=== PATIENT | female | born 1945 | race Caucasian/White ===

== ENCOUNTER 2017-01-20 11:56 | Inpatient (IN) | payer MEDICARE, OTHER ==
[~2017-01-20] VITALS: Ht 162.6 cm; Wt 70.3 kg
[2017-01-20] MEDS ORDERED: CLON0.1T PO (16:51)
[2017-01-20] MEDS ORDERED: LISI-603 PO (16:51)
[2017-01-20] MEDS ORDERED: SERT50TA PO (16:51)
[2017-01-20] MEDS ORDERED: MULT-213 PO (16:51)
[2017-01-20] MEDS ORDERED: FLUT12AE5 INH (16:51)
[2017-01-20] MEDS ORDERED: BISA10SU8 RC (16:51)
[2017-01-20] MEDS ORDERED: DOCU-25 PO (16:51)
[2017-01-20] MEDS ORDERED: NIFE30TA89 PO (16:51)
[2017-01-20] MEDS ORDERED: MAGN400O6 PO (16:51)
[2017-01-20] MEDS ORDERED: ACET-868 PO (16:51)
[2017-01-20] MEDS ORDERED: NICO1PAT28 TD (16:51)
[2017-01-20] MEDS ORDERED: TEMA7.5C PO (16:51)
[2017-01-20] MEDS ORDERED: PRED20TA PO (16:51)
[2017-01-20] MEDS ORDERED: LORA1TAB82 PO (16:51)
[2017-01-20] MEDS ORDERED: OMEG1CAP55 PO (16:51)
[2017-01-20] MEDS ORDERED: ATOR10TA PO (16:51)
[2017-01-20] MEDS ORDERED: CLONIDINE HCL 0.1 MG TABLET PO ONE (17:00)
[2017-01-20] MEDS ORDERED: CLONIDINE HCL 0.1 MG TABLET ONE (17:12)
[2017-01-20] MEDS ORDERED: predniSONE 20 MG TABLET PO ONE (17:30)
[2017-01-20] MEDS ORDERED: ALBUTEROL FS 2.5 MG/3 ML VIAL.NEB NEB ONE (17:30)
[2017-01-20] MEDS ORDERED: IPRATROPIUM NEB FS 0.5 MG/2.5 ML AMPUL.NEB NEB ONE (17:30)
[2017-01-20] MEDS ORDERED: predniSONE 20 MG TABLET ONE (17:32)
[2017-01-20] MEDS ORDERED: IPRATROPIUM NEB FS 0.5 MG/2.5 ML AMPUL.NEB ONE (17:35)
[2017-01-20] MEDS ORDERED: ALBUTEROL FS 2.5 MG/3 ML VIAL.NEB ONE (17:35)
--- NOTE | 2017-01-20 19:44 | NUR ---
71 Y/O FEMALE IN BED 14 RESTING COMFORTABLY. NO ORDERS PENDING. WAITING FOR ROOM ASSIGNMENT.
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
[2017-01-20 22:52] VITALS: BP 154/99
--- NOTE | 2017-01-21 | NUR ---
MS RN NOTES BLOOD PRESSURE RE CHECK 159/84,PULSE 76.
[2017-01-21 00:21] VITALS: BP 159/84
[2017-01-21] MEDS ORDERED: MAGNESIUM HYDROXIDE 30 ML UDC PO PRN (01:00)
[2017-01-21] MEDS ORDERED: BISACODYL SUPP (10 MG) 10 MG/SUPP.RECT SUPP.RECT RC PRN (01:00)
[2017-01-21] MEDS: LORAZEPAM 1 MG TABLET PO SCH ×3 (05:47→17:36)
--- NOTE | 2017-01-21 06:18 | NUR ---
MS RN NOTES NON SOB,SLEPT WELL WITHOUT PHARMACOLOGICAL INTERVENTION,REFUSED ATIVAN DOSE PO THIS MORNING.A/O X4,IN NO ACUTE DISTRESS.WILL ENDORSE TO DAY NURSE FOR RASTA.
[2017-01-21 08:00] VITALS: BP 189/107
--- NOTE | 2017-01-21 08:01 | NUR ---
MS/RN OPENING NOTE PATIENT RECEIVED IN BED IN STABLE CONDITION. A/O X 4. NO SIGNS OF ACUTE DISTRESS. NO COMPLAIN OF PAIN OR DISCOMFORT. ALL NEEDS ATTENDED TO. CALL LIGHT WITHIN REACH. WILL CONTINUE TO MONITOR TO ENSURE SAFETY.
[2017-01-21] MEDS: NICOTINE PATCH (21MG) 21 MG PATCH.TD24 TD SCH (08:33)
[2017-01-21] MEDS: NIFEdipine XL (30MG) 30 MG TAB PO SCH (08:34)
[2017-01-21] MEDS: DOCUSATE SODIUM 100 MG CAPSULE PO SCH ×2 (08:34→17:36)
[2017-01-21] MEDS: LISINOPRIL (20MG) 20 MG TABLET PO SCH (08:34)
[2017-01-21] MEDS: predniSONE 20 MG TABLET PO SCH (08:34)
[2017-01-21] MEDS: SERTRALINE HCL 50 MG TABLET PO SCH (08:34)
[2017-01-21 08:53] LABS: BASOPHILS % (AUTO) 0.1 % (0.0-2.0); EOSINOPHILS % (AUTO) 0.1 % (0.0-6.0); HEMATOCRIT 43 % (33-45); LYMPHOCYTES % (AUTO) 12.4 % (20.0-44.0); MEAN CORPUSCULAR HEMOGLOBIN 28 PG (26.0-33.0); MEAN CORPUSCULAR HGB CONC 33 g/dl (31.0-36.0); MEAN CORPUSCULAR VOLUME 87 fL (82-100); MONOCYTES # (AUTO) 0.7 /CMM (0.1-1.30); MONOCYTES % (AUTO) 4.4 % (2.0-12.0); NEUTROPHILS # (AUTO) 13.7 /CMM (1.8-8.9); PLATELET COUNT (AUTO) 342 /CMM (150-450); RED BLOOD CELL COUNT(AUTO) 4.93 MIL/uL (4.0-5.2); WHITE BLOOD COUNT (AUTO) 16.5 K/uL (4.3-11.0)
[2017-01-21] MEDS: FLUTICASONE 110MCG 1 EA INHALER IH SCH ×2 (09:07→17:38)
[2017-01-21] MEDS: MULTIVITAMINS,THERAGRAN 1 UDTAB TABLET PO SCH (09:07)
[2017-01-21 09:17] LABS: BILIRUBIN,TOTAL 0.3 mg/dL (0.2-1.0); CALCIUM, SERUM 9.7 mg/dL (8.5-10.1); CREATININE 0.6 mg/dL (0.6-1.3); MAGNESIUM 2.1 mg/dL (1.8-2.4); PHOSPHORUS 3.3 mg/dL (2.5-4.9); POTASSIUM 4.1 mmol/L (3.5-5.1); TOTAL PROTEIN, SERUM 6.7 g/dL (6.4-8.2)
--- NOTE | 2017-01-21 10:56 | NUR ---
MS/RN SPOKE WITH DR SHARMA SPOKE WITH DR SHARMA AND MADE AWARE PATIENT WBC 16 AND PT. C/O NASAL CONGESTION AND THROAT IRRITATION WITH ORDERS FOR CXR TODAY
[2017-01-21 16:00] VITALS: BP 164/91
[2017-01-21] MEDS: CLONIDINE HCL 0.1 MG TABLET PO PRN ×2 (17:37→22:34)
--- NOTE | 2017-01-21 18:34 | NUR ---
MS/RN CLOSING NOTE PATIENT IN BED IN STABLE CONDITION. A/O X 4. NO SIGNS OF ACUTE DISTRESS. NO COMPLAIN OF PAIN OR DISCOMFORT. ALL NEEDS ATTENDED TO. CALL LIGHT WITHIN REACH. WILL ENDORSE TO NEXT SHIFT FOR CONTINUITY OF CARE.
[2017-01-21 20:00] VITALS: BP 187/87
--- NOTE | 2017-01-21 20:00 | NUR ---
MS MELLO INITIAL NOTES RECEIVED REPORT FROM AM NURSE AND CHECKED THE PATIENT, SEEN IN BED SITTING WHILE WATCHING TV. SHE'S ALERT ORIENTED, DENIES ANY SOB OR ANY DISCOMFORT. KEPT HER WARM AND COMFORTABLE AT ALL TIMES. PLACE CALL LIGHT AT REACH. WILL CONTINUE TO MONITOR.
[2017-01-21] MEDS: TEMAZEPAM 7.5 MG CAPSULE PO PRN (21:32)
[2017-01-21] MEDS: ATORVASTATIN 10 MG TABLET PO SCH (21:32)
--- NOTE | 2017-01-21 22:00 | NUR ---
MS FUNMILAYO NOTES ROUTINE MEDS GIVEN AND SLEEP MED GIVEN . SAFETY PRECAUTION APPLIED AND OBSERVED. PLACE CALL LIGHT AT REACH.
--- NOTE | 2017-01-22 | NUR ---
MS SOFT METALS ENGRAVER HAND NOTES PT SLEEPING COMFORTABLY IN BED WITHOUT ANY DISCOMFORT NOTED. RESPIRATION EVEN AND NON-LABORED. KEPT HER WARM AND COMFORTABLE AT ALL TIMES. WILL CONTINUE TO MONITOR. PLACE CALL LIGHT AT REACH.
[2017-01-22] MEDS: LORAZEPAM 1 MG TABLET PO SCH ×4 (05:30→17:23)
[2017-01-22 05:46] VITALS: BP 152/90
[2017-01-22] MEDS: CLONIDINE HCL 0.1 MG TABLET PO PRN ×2 (05:49→21:26)
--- NOTE | 2017-01-22 05:50 | NUR ---
quality internship/notes pt woke up and routine ativan give as ordered, checked her blood pressure too and came out 170/100, clonidine given as ordered. pt stated "that much better, denies any discomfort and dizziness. no chest pain too. continue monitoring.
--- NOTE | 2017-01-22 07:00 | NUR ---
COMPLAINT COORDINATOR/CLOSING NOTES PT SLEEPING COMFORTABLY IN BED AFTER ATIVAN GIVEN . NO SIGNS OF ANY ACUTE DISTRESS NOTED. ALL DUE MEDS GIVEN AND STABLE SHARMIN THE NIGHT. KEPT HER WARM AND COMFORTABLE AT ALL TIMES. ENDORSE TO AM NURSE ARRIOLA FOR CONTINUITY OF CARE.PLACE CALL LIGHT AT REACH.
--- NOTE | 2017-01-22 07:36 | NUR ---
MS RN OPENING NOTES. PT RECEIVED A&0X3. PT SLEEPING, EASILY AWOKEN, PT IN LOW SEMI FOWLERS WITH BED IN LOWEST LOCKED POSITION WITH HANDRAILSX3 AND CALL MCKINNEY WITHIN REACH. PT TOLERATING ROOM AIR, LUNGS AUSCULTATED DIMINISHED, [id number]% WITH NO SOB . PT REPORTING NO PAIN AND IS WITH NO OBVIOUS S/S OF DISTRESS OR DISCOMFORT. PT IS WITHOUT IVC, ENDORSED MD AWARE. PT BRIEFED ON TODAY'S POC AND IS WITHOUT CONCERN OR COMPLAINT AT THIS TIME.
[2017-01-22 08:00] VITALS: BP 160/95
[2017-01-22] MEDS: FLUTICASONE 110MCG 1 EA INHALER IH SCH ×2 (09:07→17:24)
[2017-01-22] MEDS: LISINOPRIL (20MG) 20 MG TABLET PO SCH (09:08)
[2017-01-22] MEDS: MULTIVITAMINS,THERAGRAN 1 UDTAB TABLET PO SCH (09:08)
[2017-01-22] MEDS: predniSONE 20 MG TABLET PO SCH (09:08)
[2017-01-22] MEDS: DOCUSATE SODIUM 100 MG CAPSULE PO SCH ×2 (09:08→17:23)
[2017-01-22] MEDS: SERTRALINE HCL 50 MG TABLET PO SCH (09:08)
[2017-01-22] MEDS: NIFEdipine XL (30MG) 30 MG TAB PO SCH (09:08)
[2017-01-22] MEDS: NICOTINE PATCH (21MG) 21 MG PATCH.TD24 TD SCH (09:08)
--- NOTE | 2017-01-22 13:00 | NUR ---
MS RN NOTES. PT RESTING, WATCHING T.V, NO CONCERNS OR COMPLAINTS. IN GOOD SPIRITS AND COOPERATIVE.
[2017-01-22] MEDS ORDERED: IPRATROPIUM NEB FS 0.5 MG/2.5 ML AMPUL.NEB NEB PRN (14:00)
[2017-01-22] MEDS ORDERED: AZITHROMYCIN 100 MG/5 ML BOTTLE PO SCH (14:00)
[2017-01-22] MEDS ORDERED: GUAIFENESIN/CODEINE 10 ML UDC PO PRN (14:00)
[2017-01-22] MEDS ORDERED: ALBUTEROL FS 2.5 MG/0.5 ML VIAL.NEB NEB PRN (14:00)
[2017-01-22] MEDS: AZITHROMYCIN 250 MG TABLET PO SCH (14:18)
[2017-01-22] MEDS ORDERED: GUAIFENESIN 300 MG/15 ML UDC PO PRN (15:30)
[2017-01-22 16:00] VITALS: BP 159/90
--- NOTE | 2017-01-22 19:10 | NUR ---
MS RN CLOSING NOTES. PT A&0X3, RESTING IN BED. PT TOLERATING ROOM AIR, NC AT BEDSIDE FOR PERIODS OF SOB BUT HAS REMAINED UNUSED. PT REPORTING NO PAIN. PT SKIN REMAINS INTACT AND IS INDEPENDENT WITH REPOSITIONING. PT REMAINS WITHOUT IVC. ALL DAY NURSE DUTIES ATTENDED TO. PT WITHOUT CONCERN OR COMPLAINT AT THIS TIME. WILL ENDORSE TO NIGHT NURSE.
--- NOTE | 2017-01-22 19:45 | NUR ---
MS FUNMILAYO INITIAL NOTES. GOT REPORT FROM AM NURSE, AND SEEN PT INSIDE 315 TALKING TO ONE OF HER FRIEND FROM [facility]. DENIES ANY PAIN OR ANY DISCOMFORT. SHE SEEMS SO HAPPY WHILE TALKING TO HER FRIEND. SHE STATED SHE WILL BE BACK TO HER ROOM AFTER TALKING TO HIM. KEPT HER COMFORTABLE AND SAFE AT ALL TIMES. WILL CONTINUE TO MONITOR.
[2017-01-22 20:00] VITALS: BP 178/109
[2017-01-22] MEDS: ATORVASTATIN 10 MG TABLET PO SCH (21:26)
[2017-01-22] MEDS: TEMAZEPAM 7.5 MG CAPSULE PO PRN (21:28)
[2017-01-23] VITALS: BP 174/102
[2017-01-23] MEDS ORDERED: hydrALAZINE HCL 25 MG TABLET ONE (00:22)
--- NOTE | 2017-01-23 00:23 | NUR ---
steel hanger/notes re-checked b vital signs of the patient after catapres given. BP 174/109, pulse 70, resp 18, temp 98.1 and o2 sat 92 % in room air. pt denies any pain ro discomfort. spoke to Dr Martino and got ordered Hydralazine 25mg po q 6hrs prn.
[2017-01-23] MEDS: hydrALAZINE HCL 25 MG TABLET PO PRN ×2 (00:29→19:53)
[2017-01-23] MEDS: LORAZEPAM 1 MG TABLET PO SCH ×5 (00:29→23:28)
--- NOTE | 2017-01-23 02:30 | NUR ---
ADMINISTRATIVE PROFESSIONAL/NOTES PT SLEEPING COMFORTABLY IN BED WITHOUT ANY ACUTE DISTRESS NOTED, BREATHING EVEN AND NON-LABORED, KEPT HER WARM AND COMFORTABLE AT ALL TIMES. PLACE CALL LIGHT AT REACH.
[2017-01-23] MEDS: ACETAMINOPHEN 325 MG TABLET PO PRN ×3 (03:12→21:43)
--- NOTE | 2017-01-23 03:15 | NUR ---
clean up person/notes pt woke up and complained of mild pain on her lower legs tylenol po given as ordered. crackmert and milton also served. will continue to monitor.
--- NOTE | 2017-01-23 07:01 | NUR ---
MS TEST DESK SUPERVISOR CLOSING NOTES PT REMAINS SLEEPING COMFORTABLY IN BED AFTER PAIN MEDS GIVEN . STABLE SHARMIN THE NIGHT . ALL DUE MEDS GIVEN AND ALL NEEDS MET. KEPT HER WARM AND COMFORTABLE AT ALL TIMES. BREATHING EVEN AND NON-LABORED. NOT IN ANY ACUTE DISTRESS NOTED. ENDORSE TO AM NURSE FOR CONTINUITY OF CARE. PLACE CALL LIGHT AT REACH.
--- NOTE | 2017-01-23 07:32 | NUR ---
RN OPENING NOTES RECEIVED PATIENT IN BED RESTING, RESPONSIVE, A/OX4. NO ACUTE DISTRESS, NO SOB NOTED. DENIES PAIN AT THE MOMENT. KEPT PATIENT SAFE AND COMFORTABLE. BED IN LOW POSITION, LOCKED, SIDERAILS UPX2. CALL LIGHT IN REACH. WILL CONTINUE TO MONITOR ACCORDINGLY.
[2017-01-23 08:00] VITALS: BP 174/99
[2017-01-23] MEDS: DOCUSATE SODIUM 100 MG CAPSULE PO SCH ×2 (09:19→17:52)
[2017-01-23] MEDS: LISINOPRIL (20MG) 20 MG TABLET PO SCH (09:20)
[2017-01-23] MEDS: SERTRALINE HCL 50 MG TABLET PO SCH (09:21)
[2017-01-23] MEDS: NIFEdipine XL (30MG) 30 MG TAB PO SCH (09:21)
[2017-01-23] MEDS: NICOTINE PATCH (21MG) 21 MG PATCH.TD24 TD SCH (09:21)
[2017-01-23] MEDS: MULTIVITAMINS,THERAGRAN 1 UDTAB TABLET PO SCH (09:21)
[2017-01-23] MEDS: predniSONE 20 MG TABLET PO SCH (09:21)
[2017-01-23] MEDS: AZITHROMYCIN 250 MG TABLET PO SCH (09:26)
[2017-01-23] MEDS: FLUTICASONE 110MCG 1 EA INHALER IH SCH ×2 (09:36→17:53)
[2017-01-23 16:00] VITALS: BP 151/80
--- NOTE | 2017-01-23 19:05 | NUR ---
MS RN OPENING NOTES: RECEIVED PT IN BED AND RESTING COMFORTABLY AND WATCHING TV. PT IS LAYING UP WITH SEMI MOSQUEDA'S POSITION. NO COMPLAINTS OF PAIN. NO S/S OF DISTRESS NOTED AT THIS TIME. PT IS A/OX4. CALL LIGHT WITHIN PT'S REACH. BED KEPT IN LOW, LOCKED POSITION, AND SIDE RAILS X 2UP. WILL CONTINUE TO MONITOR PT.
--- NOTE | 2017-01-23 19:15 | NUR ---
RN CLOSING NOTES NO CHANGE IN PATIENT'S CONDITION, PATIENT IN BED RESTING. NO ACUTE DISTRESS, NO SOB. DENIES PAIN OR DISCOMFORT. ALL NEEDS ATTENDED AND PROVIDED. BED IN LOW POSITION, LOCKED, HOB ELEVATED, SIDERAILS UPX2, CALL LIGHT IN REACH. ENDORSED TO NIGHT RN FOR RASTA.
[2017-01-23 20:00] VITALS: BP 203/103
[2017-01-23 21:38] VITALS: BP 184/68
[2017-01-23] MEDS: ATORVASTATIN 10 MG TABLET PO SCH (21:43)
--- NOTE | 2017-01-23 21:43 | NUR ---
MS RN NOTES: PT COMPLAINING OF MILD LEG PAIN AND REQUESTING FOR TYLENOL. PT WAS ADMINISTERED TYLENOL 650 MG PO. WILL CONTINUE TO MONITOR PT.
--- NOTE | 2017-01-23 21:53 | NUR ---
MS RN NOTES: SPOKE TO RHEA BROWN REGARDING BP TRENDING DOWN 184/68 HR 85. DOES NOT WANT TO DISCHARGE HER EVEN AFTER INFORMING HER ABOUT MICROBIOLOGY SOIL SCIENTIST NOTES. WILL CONTINUE TO MONITOR PT.
[2017-01-23 22:37] VITALS: BP 174/88
[2017-01-23] MEDS: CLONIDINE HCL 0.1 MG TABLET PO PRN (22:39)
--- NOTE | 2017-01-23 22:41 | NUR ---
RN NOTES: BLOOD PRESSURE STILL ELEVATED: 174/88 HR 80. PT WAS ADMINISTERED CATAPRES 0.1MG PO. WILL CONTINUE TO MONITOR PT'S BP.
--- NOTE | 2017-01-23 23:30 | NUR ---
MS RN NOTES: BLOOD PRESSURE TRENDING DOWN AND IS NOW 156/108 HR 83. PT WAS ADMINISTERED ATIVAN 1MG PO (SCHEDULED MED). WILL CONTINUE TO MONITOR PT.
[2017-01-24] MEDS: hydrALAZINE HCL 25 MG TABLET PO PRN ×2 (05:10→12:24)
--- NOTE | 2017-01-24 05:13 | NUR ---
MS RN NOTES: BP WAS 173/107 HR 70. APRESOLINE 25MG PO WAS ADMINISTERED. WILL CONTINUE TO MONITOR PT.
[2017-01-24] MEDS: LORAZEPAM 1 MG TABLET PO SCH ×2 (05:52→11:05)
[2017-01-24 06:40] VITALS: BP 159/94
--- NOTE | 2017-01-24 07:00 | NUR ---
RN NOTES: PATIENT AOX4. PATIENT RESTING IN BED. NONLABORED BREATHING NOTED ON ROOM AIR. NO COUGHING NOTED. NO SIGNS OF DISTRESS NOTED. PATIENT DENIES PAIN. BED IN LOWEST LOCKED POSITION. CALL LIGHT WITHIN REACH. WILL CONTINUE TO MONITOR PATIENT
--- NOTE | 2017-01-24 07:05 | NUR ---
MS RN CLOSING NOTES: ALL NEEDS WERE ATTENDED AND ANTICIPATED FOR. PT IN BED AND RESTING COMFORTABLY. PT ASLEEP AT THIS TIME. PT IS LAYING UP WITH SEMI MOSQUEDA'S POSITION. NO COMPLAINTS OF PAIN. NO S/S OF DISTRESS NOTED AT THIS TIME. PT IS A/OX4. CALL LIGHT WITHIN PT'S REACH. BED KEPT IN LOW, LOCKED POSITION, AND SIDE RAILS X 2UP. ENDORSED TO AM NURSE FOR RASTA.
[2017-01-24 08:00] VITALS: BP 172/90
[2017-01-24] MEDS: SERTRALINE HCL 50 MG TABLET PO SCH (08:11)
[2017-01-24] MEDS: LISINOPRIL (20MG) 20 MG TABLET PO SCH (08:12)
[2017-01-24] MEDS: AZITHROMYCIN 250 MG TABLET PO SCH (08:12)
[2017-01-24] MEDS: MULTIVITAMINS,THERAGRAN 1 UDTAB TABLET PO SCH (08:13)
[2017-01-24] MEDS: predniSONE 20 MG TABLET PO SCH (08:13)
[2017-01-24] MEDS: DOCUSATE SODIUM 100 MG CAPSULE PO SCH (08:14)
[2017-01-24] MEDS: NIFEdipine XL (30MG) 30 MG TAB PO SCH (08:14)
[2017-01-24] MEDS: NICOTINE PATCH (21MG) 21 MG PATCH.TD24 TD SCH (08:15)
[2017-01-24] MEDS: FLUTICASONE 110MCG 1 EA INHALER IH SCH (08:21)
[2017-01-24 09:19] VITALS: BP 166/86
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
[2017-01-24 13:05] VITALS: BP 168/78
--- NOTE | 2017-01-24 13:06 | NUR ---
RN NOTES: BLOOD PRESSURE REASSESSED MANUALLY AND NOTED TO BE 168/78 WITH HR OF 80. NONLABORED BREATHING NOTED. PATIENT DENIES HEADACHES. PERRLA. WILL CONTINUE TO MONITOR
[2017-01-24] MEDS: CLONIDINE HCL 0.1 MG TABLET PO PRN (14:28)
--- NOTE | 2017-01-24 14:30 | NUR ---
RN NOTES: BP ASSESSED AND NOTED TO BE 162/70. CLONIDINE ADMINISTERED. PATIENT DENIES HEADACHES, NO SIGNS OF DISTRESS NOTED. NONLABORED BREATHING ON ROOM AIR. WILL CONTINUE TO MONITOR
--- NOTE | 2017-01-24 15:48 | NUR ---
RN NOTES: PATIENT DISCHARGED TO [facility],PER MD ORDERS. PATIENT STABLE. NONLABORED BREATHING NOTED. NO SIGNS OF DISTRESS NOTED. PATIENT PERRLA, DENIES HEADACHES, NO NOSE BLEEDS NOTED. PATIENT REFUSED TO HAVE BP ASSESSED AGAIN. PATIENT DID NOT HAVE AN IV SITE DURING HOSPITAL VISIT. PATIENT EDUCATED ON EXISTCARE INSTRUCTIONS. PATIENT VERBALIZED UNDERSTANDING. NO COUGHING NOTED, NO DIFFICULTY BREATHING. VALUABLES GIVEN TO PATIENT. PATIENT LEFT TO SNF VIA AMBULANCE.
[2017-01-24 16:00] VITALS: BP 159/84
== END 2017-01-24 15:45 | DRG 918 ==
LOC: ER 11:57 → EDBD 11:57 → MED 21:27
PROVIDERS: ADMIT Internal Medicine; ATTEND Internal Medicine
DX: T59.811A Toxic effect of smoke, accidental (unintentional), initial encounter (principal); Z99.81 Dependence on supplemental oxygen; J44.0 Chronic obstructive pulmonary disease with (acute) lower respiratory infection; Y92.129 Unspecified place in nursing home as the place of occurrence of the external cause; E03.9 Hypothyroidism, unspecified; E78.5 Hyperlipidemia, unspecified; F32.9 Major depressive disorder, single episode, unspecified; F41.9 Anxiety disorder, unspecified; I10 Essential (primary) hypertension; K59.00 Constipation, unspecified; Z87.440 Personal history of urinary (tract) infections; J20.9 Acute bronchitis, unspecified
CPT/HCPCS: 36415; 71010-TC; 80053-TC; 83735-TC; 84100-TC; 85025-TC; 87081-TC; A4606; Z7610

== ENCOUNTER 2017-03-10 14:23 | Inpatient (IN) | payer MEDICARE, OTHER ==
[~2017-03-10] VITALS: Ht 162.6 cm; Wt 70.3 kg
[~2017-03-10 14:23] MED LIST: ACET-868 PO; ATOR10TA PO; BISA10SU8 RC; CLON0.1T PO; DOCU-141 PO; FLUT12AE5 INH; LISI-603 PO; LORA-259 PO; MAGN400O6 PO; MULT-213 PO; NICO1PAT28 TD; NIFE30TA89 PO; OMEG1CAP55 PO; PRED20TA PO; SERT50TA PO; TEMA7.5C PO
--- NOTE | 2017-03-10 14:50 | NUR ---
PT CAME IN WITH C/O SOB, COUGHING X DECEMBER. NAD NOTED. VSS. SEEN BY MD FOR EVAL. SAFETY AND COMFORT MEASURES PROVIDED. WILL MONITOR.
--- NOTE | 2017-03-10 15:20 | NUR ---
TRAFFIC SUPERINTENDENT AT FOR BLOOD DRAW.
[2017-03-10 15:45] LABS: BASOPHILS # (AUTO) 0.2 /CMM (0.0-0.2); BASOPHILS % (AUTO) 1.4 % (0.0-2.0); HEMATOCRIT 39 % (33-45); HEMOGLOBIN 13.6 g/dL (11.5-14.8); LYMPHOCYTES # (AUTO) 0.9 /CMM (0.8-4.8); LYMPHOCYTES % (AUTO) 5.4 % (20.0-44.0); MEAN CORPUSCULAR HEMOGLOBIN 29 PG (26.0-33.0); MEAN CORPUSCULAR HGB CONC 35 g/dl (31.0-36.0); MEAN CORPUSCULAR VOLUME 83 fL (82-100); MONOCYTES # (AUTO) 0.5 /CMM (0.1-1.30); MONOCYTES % (AUTO) 3.4 % (2.0-12.0); NEUTROPHILS # (AUTO) 14.2 /CMM (1.8-8.9); NEUTROPHILS % (AUTO) 89.8 % (43.0-81.0); PLATELET COUNT (AUTO) 407 /CMM (150-450); RDW COEFFICIENT OF VARIATION 13.3 (11.5-15.0); RED BLOOD CELL COUNT(AUTO) 4.69 MIL/uL (4.0-5.2); WHITE BLOOD COUNT (AUTO) 15.8 K/uL (4.3-11.0)
[2017-03-10 15:52] LABS: CALCIUM, SERUM 9.4 mg/dL (8.5-10.1); CREATININE 0.9 mg/dL (0.6-1.3); POTASSIUM 4.3 mmol/L (3.5-5.1)
[2017-03-10 16:05] LABS: ALBUMIN 3.1 g/dL (3.4-5.0); BILIRUBIN,DIRECT 0.1 mg/dL (0.0-0.2); BILIRUBIN,TOTAL 0.3 mg/dL (0.2-1.0); TOTAL PROTEIN, SERUM 7.3 g/dL (6.4-8.2)
[2017-03-10] MEDS ORDERED: ALBUTEROL FS 2.5 MG/3 ML VIAL.NEB CONTNEB ONE (17:30)
[2017-03-10] MEDS ORDERED: IPRATROPIUM NEB FS 0.5 MG/2.5 ML AMPUL.NEB NEB ONE (17:30)
[2017-03-10] MEDS ORDERED: predniSONE 20 MG TABLET PO ONE (17:30)
[2017-03-10] MEDS ORDERED: predniSONE 20 MG TABLET ONE (17:43)
[2017-03-10] MEDS ORDERED: ALBUTEROL FS 2.5 MG/3 ML VIAL.NEB ONE (17:46)
[2017-03-10] MEDS ORDERED: IPRATROPIUM NEB FS 0.5 MG/2.5 ML AMPUL.NEB NEB PRN (18:00)
[2017-03-10] MEDS ORDERED: ALBUTEROL FS 2.5 MG/0.5 ML VIAL.NEB NEB PRN (18:00)
[2017-03-10] MEDS ORDERED: ONDANSETRON HCL/PF 4 MG/2 ML VIAL IVP PRN (18:00)
[2017-03-10] MEDS ORDERED: MAG HYDROX/AL HYDROX/SIMETH 30 ML UDC PO PRN (18:00)
[2017-03-10] MEDS ORDERED: MAGNESIUM HYDROXIDE 30 ML UDC PO PRN (18:00)
[2017-03-10] MEDS ORDERED: ACETAMINOPHEN 325 MG TABLET PO PRN ×2 (18:00→20:30)
[2017-03-10] MEDS ORDERED: ZOLPIDEM TARTRATE 5 MG TABLET PO PRN (18:00)
[2017-03-10] MEDS ORDERED: METO25TA6 PO (18:17)
[2017-03-10] MEDS ORDERED: HYDROCODONE BIT/HOMATROPINE 5 ML UDC PO PRN (18:30)
--- NOTE | 2017-03-10 19:24 | NUR ---
RECEIVED REPORT FROM MADHAVI COX FOR RASTA
--- NOTE | 2017-03-10 20:15 | NUR ---
REPORT GIVEN TO TELE NURSE BY ZACHARY RN/CHG
[2017-03-10 20:25] VITALS: BP 166/92
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
[2017-03-10] MEDS ORDERED: BISACODYL SUPP (10 MG) 10 MG/SUPP.RECT SUPP.RECT RC PRN (20:30)
--- NOTE | 2017-03-10 21:00 | NUR ---
NO BLOOD TRANSFUSION PATIENT OBSERVES BAHAI & REFUSED BLOOD TRANSFUSION IF NEEDED, NOT AN ORGAN DONOR WELL ( PER PATIENT'S WISH ). WILL ENDORSE TO ANABELL COX.
[2017-03-10 21:08] VITALS: BP 166/92
[2017-03-10] MEDS: TEMAZEPAM 7.5 MG CAPSULE PO PRN (21:36)
[2017-03-10] MEDS: ATORVASTATIN 10 MG TABLET PO SCH (21:36)
--- NOTE | 2017-03-10 21:36 | NUR ---
PRN RESTORIL GIVEN PATIENT ASKED FOR SLEEPING PILL SINCE SHE TAKES IT QD. PRN RESTORIL GIVEN. WILL OBSERVE FOR EFFECTIVENESS.
[2017-03-10] MEDS: METOPROLOL TARTRATE 25 MG TABLET PO SCH (21:39)
[2017-03-10] MEDS: AZTREONAM 1 G in IV NS 0.9% 100 ML IV SCH (21:39)
--- NOTE | 2017-03-10 23:03 | NUR ---
NEW COUGH SYRUP ORDER. PATIENT NOTED WITH DRY COUGH, IS ALLERGIC TO HYDROCODONE SYP PER HX. PHARMACY RECOMMENDED TO GET NEW ORDER & NOT TO GIVE HYDROCODONE SYP UNTIL THE ORDER IS CLARIFIED WITH MD. PAGED DR FERNÁNDEZ & CALLED BACK WITH NEW ORDER. NOTED & CARRIED OUT.
[2017-03-10] MEDS ORDERED: GUAIFENESIN/D-METHORPHAN HB 5 ML UDC ONE (23:09)
[2017-03-10] MEDS: GUAIFENESIN/D-METHORPHAN HB 5 ML UDC PO PRN (23:15)
--- NOTE | 2017-03-10 23:15 | NUR ---
PRN COUGH SYRUP GIVEN PATEINT HAD DRY COUGH & WANTED TO TAKE COUGH SYRUP, PRN ROBITUSSIN DM GIVEN. PATIENT WENT BACK TO SLEEP. WILL OBSERVE CLOSELY.
[2017-03-11] VITALS (8 sets, daily range): BP systolic 154–167; BP diastolic 82–101
--- NOTE | 2017-03-11 00:30 | NUR ---
HELD ROUTINE ATIVAN PATIENT HAD PRN RESTORIL, NOTED TO BE SLEEPING/SNORING @ THIS TIME. HELD ROUTINE ATIVAN TO PREVENT OVERSEDATION. MONITORING CLOSELY.
--- NOTE | 2017-03-11 03:27 | NUR ---
MANAGER REIMBURSEMENT NOTES PATIENT IS SLEEPING COMFORTABLY IN BED WITHOUT ANY COMPLICATIONS. FREQUENT VISUAL CHECKS DONE FOR SAFETY & COMFORT.
[2017-03-11] MEDS: AZTREONAM 1 G in IV NS 0.9% 100 ML IV SCH ×3 (05:03→20:32)
[2017-03-11] MEDS: LORAZEPAM 1 MG TABLET PO SCH ×2 (06:00)
[2017-03-11] MEDS: CLONIDINE HCL 0.1 MG TABLET PO PRN (06:13)
--- NOTE | 2017-03-11 06:13 | NUR ---
PRN CLONIDINE GIVEN V/S CHECKED & BP NOTED TO BE 181/94, 64. PRN CLONIDINE GIVEN ORDERED. WILL REASSESS.
--- NOTE | 2017-03-11 06:20 | NUR ---
PT REFUSED ATIVAN PT REFUSED TO TAKE ATIVAN, STATED SHE DOES NOT NEED IT @ THIS TIME.
[2017-03-11 06:37] LABS: BASOPHILS % (AUTO) 0.2 % (0.0-2.0); EOSINOPHILS % (AUTO) 0.1 % (0.0-6.0); HEMATOCRIT 41 % (33-45); HEMOGLOBIN 13.7 g/dL (11.5-14.8); LYMPHOCYTES # (AUTO) 1.4 /CMM (0.8-4.8); LYMPHOCYTES % (AUTO) 11.5 % (20.0-44.0); MEAN CORPUSCULAR HEMOGLOBIN 29 PG (26.0-33.0); MEAN CORPUSCULAR HGB CONC 34 g/dl (31.0-36.0); MEAN CORPUSCULAR VOLUME 86 fL (82-100); MONOCYTES # (AUTO) 0.8 /CMM (0.1-1.30); MONOCYTES % (AUTO) 6.9 % (2.0-12.0); NEUTROPHILS % (AUTO) 81.3 % (43.0-81.0); PLATELET COUNT (AUTO) 421 /CMM (150-450); RDW COEFFICIENT OF VARIATION 14.5 (11.5-15.0); RED BLOOD CELL COUNT(AUTO) 4.74 MIL/uL (4.0-5.2); WHITE BLOOD COUNT (AUTO) 12.3 K/uL (4.3-11.0)
--- NOTE | 2017-03-11 06:39 | NUR ---
COMFORT ADVISOR CLOSING NOTES PATIENT SLEPT WELL @ NIGHT AFTER TAKING RESTORIL. NO SOB, NO C/O PAIN, NO ACUTE CHANGES NOTED. A & O X 3 WITH SLIGHT FORGETFULNESS. ON TELE MONITORING WITH SR 66. IV ACCESS TO LAC, SL, INTACT PATENT. IV ATB GIVEN, TOLERATED WELL. ASSISTED WITH ADL CARE. ALL NEEDS ATTENDED TO & MET. BED IN LOW LOCKED POSITION. CALL LIGHT WITHIN REACH. WILL ENDORSE TO AM RN FOR CONTINUITY OF CARE.
[2017-03-11] MEDS ORDERED: GUAIFENESIN/D-METHORPHAN HB 5 ML UDC ONE (06:41)
[2017-03-11] MEDS: GUAIFENESIN/D-METHORPHAN HB 5 ML UDC PO PRN (06:43)
--- NOTE | 2017-03-11 06:43 | NUR ---
PRN ROBITUSSIN GIVEN PT HAD DRY COUGH IN AM, ASKED FOR COUGH MEDICINE, PRN COUGH SYP GIVEN. WILL OBSERVE.
[2017-03-11 06:54] LABS: CALCIUM, SERUM 9.7 mg/dL (8.5-10.1); CREATININE 0.7 mg/dL (0.6-1.3); MAGNESIUM 2.2 mg/dL (1.8-2.4); POTASSIUM 4.1 mmol/L (3.5-5.1)
--- NOTE | 2017-03-11 07:54 | NUR ---
RN NOTES RECEIVED PATIENT ASLEEP COMFORTABLY IN BED, EASILY AROUSED BY VERBAL STIMULI. ABLE TO EXPRESS NEEDS. PATIENT KEPT CLEAN DRY AND COMFORTABLE, RESPIRATIONS EVEN AND UNLABORED, IN NO APPARENT PAIN OR DISCOMFORT AT THIS TIME. IV ACCESS TO LAC, SL, PATENT AND INTACT, NO REDNESS OR INFILTRATION NOTED. SAFETY MEASURES IN PLACE, CALL LIGHT WITHIN REACH, WILL CONTINUE TO MONITOR
[2017-03-11] MEDS: NIFEdipine XL (30MG) 30 MG TAB PO SCH (08:23)
[2017-03-11] MEDS: PANTOPRAZOLE 40 MG TABLET.DR PO SCH (08:24)
[2017-03-11] MEDS: DOCUSATE SODIUM 100 MG CAPSULE PO SCH ×2 (08:24→16:34)
[2017-03-11] MEDS: predniSONE 20 MG TABLET PO SCH (08:24)
[2017-03-11] MEDS: SERTRALINE HCL 50 MG TABLET PO SCH (08:24)
[2017-03-11] MEDS: LISINOPRIL (20MG) 20 MG TABLET PO SCH (08:25)
[2017-03-11] MEDS: METOPROLOL TARTRATE 25 MG TABLET PO SCH ×2 (08:26→20:32)
[2017-03-11] MEDS: NICOTINE PATCH (21MG) 21 MG PATCH.TD24 TD SCH (08:26)
[2017-03-11] MEDS: FLUTICASONE 110MCG 1 EA INHALER IH SCH ×2 (09:19→16:34)
--- NOTE | 2017-03-11 11:00 | NUR ---
PT REFUSED DVT PUMPS
[2017-03-11] MEDS: LORAZEPAM 1 MG TABLET PO PRN ×2 (12:45→18:51)
[2017-03-11] MEDS: ALBUTEROL FS 2.5 MG/0.5 ML VIAL.NEB NEB SCH ×2 (13:30→19:34)
[2017-03-11] MEDS: IPRATROPIUM NEB FS 0.5 MG/2.5 ML AMPUL.NEB NEB SCH ×2 (13:30→19:34)
--- NOTE | 2017-03-11 16:30 | NUR ---
PATIENT BP 162/92. MD'S AWARE. NO NEW ORDERS AT THIS TIME.
--- NOTE | 2017-03-11 19:30 | NUR ---
RN INITIAL NOTES Received pt sleeping comfortably in bed, with hob elevated. pt is responsive to verbal and tactile stimuli. respirations are even and unlabored, not in any acute distress noted. Pt continues to be on 2L/min via NC, saturating at 95%. Denies any pain at this time. IV site to LAC, patent. dressing kept clean and dry. No edema noted to BUE/BLE. Reminded pt to use call light when assistance is needed, call light is left within reach. Will continue to monitor throughout shift.
--- NOTE | 2017-03-11 19:30 | NUR ---
RN CLOSING NOTES PATIENT ASLEEP COMFORTABLY IN BED, EASILY AROUSED BY VERBAL STIMULI. ABLE TO EXPRESS NEEDS. PATIENT KEPT CLEAN DRY AND COMFORTABLE, RESPIRATIONS EVEN AND UNLABORED, IN NO APPARENT PAIN OR DISCOMFORT AT THIS TIME. IV ACCESS TO LAC, SL, PATENT AND INTACT, NO REDNESS OR INFILTRATION NOTED. SAFETY MEASURES IN PLACE, CALL LIGHT WITHIN REACH. ENDORSED TO THE NEXT SHIFT FOR CONTINUATION OF CARE.
[2017-03-11] MEDS: ATORVASTATIN 10 MG TABLET PO SCH (21:04)
[2017-03-12] MEDS: IPRATROPIUM NEB FS 0.5 MG/2.5 ML AMPUL.NEB NEB SCH ×4 (00:44→22:24)
[2017-03-12] MEDS: ALBUTEROL FS 2.5 MG/0.5 ML VIAL.NEB NEB SCH ×4 (00:44→22:24)
[2017-03-12] MEDS: AZTREONAM 1 G in IV NS 0.9% 100 ML IV SCH ×3 (04:24→20:13)
--- NOTE | 2017-03-12 06:32 | NUR ---
RN CLOSING NOTES All due meds given, needs met and anticipated. Pt is awake and responsive. Respirations are even and unlabored, not in any acute distress noted. Currently on O2 @2L/min via NC, saturating >94%. HOB elevated to facilitate breathing. Denies any pain at this time. Pt able to reposition self using siderails. On ATB therapy w/ no ASE noted. IV to LAC intact and patent. Dressing is kept clean and dry. Educated pt on breathing techniques and demonstrated pursed-lip breathing, pt able to perform return demonstration. Reminded pt to use call light when assistance is needed, call light is left within reach. Will endorse to next shift for continuity of care.
[2017-03-12 07:12] LABS: BASOPHILS # (AUTO) 0.1 /CMM (0.0-0.2); BASOPHILS % (AUTO) 0.4 % (0.0-2.0); EOSINOPHILS # (AUTO) 0.1 /CMM (0.0-0.7); EOSINOPHILS % (AUTO) 0.4 % (0.0-6.0); HEMATOCRIT 42 % (33-45); LYMPHOCYTES # (AUTO) 3.5 /CMM (0.8-4.8); LYMPHOCYTES % (AUTO) 21.7 % (20.0-44.0); MEAN CORPUSCULAR HEMOGLOBIN 29 PG (26.0-33.0); MEAN CORPUSCULAR HGB CONC 34 g/dl (31.0-36.0); MEAN CORPUSCULAR VOLUME 86 fL (82-100); MONOCYTES # (AUTO) 1.2 /CMM (0.1-1.30); MONOCYTES % (AUTO) 7.7 % (2.0-12.0); NEUTROPHILS # (AUTO) 11.3 /CMM (1.8-8.9); NEUTROPHILS % (AUTO) 69.8 % (43.0-81.0); PLATELET COUNT (AUTO) 483 /CMM (150-450); RDW COEFFICIENT OF VARIATION 14.1 (11.5-15.0); RED BLOOD CELL COUNT(AUTO) 4.86 MIL/uL (4.0-5.2); WHITE BLOOD COUNT (AUTO) 16.1 K/uL (4.3-11.0)
[2017-03-12 07:38] LABS: CALCIUM, SERUM 9.5 mg/dL (8.5-10.1); CREATININE 0.8 mg/dL (0.6-1.3); POTASSIUM 3.8 mmol/L (3.5-5.1)
[2017-03-12 08:00] VITALS: BP 181/89
--- NOTE | 2017-03-12 08:20 | NUR ---
MS RN RECEIVED ON BED, AWAKE,ALERT,ORIENTED X3,NOT IN ANY FORM OF DISTRESS,RESPIRATIONS EVEN AND UNLABORED,NO SOB NOTED, LUNGS ARE CLEAR,ABDOMEN SOFT,POSITIVE BOWEL SOUNDS, DENIES PAIN AT THIS TIME, WILL MONITOR PATIENT'S CONDITION.
[2017-03-12] MEDS: SERTRALINE HCL 50 MG TABLET PO SCH (09:14)
[2017-03-12] MEDS: NIFEdipine XL (30MG) 30 MG TAB PO SCH (09:15)
[2017-03-12] MEDS: predniSONE 20 MG TABLET PO SCH (09:15)
[2017-03-12] MEDS: LISINOPRIL (20MG) 20 MG TABLET PO SCH (09:15)
[2017-03-12] MEDS: DOCUSATE SODIUM 100 MG CAPSULE PO SCH ×2 (09:15→18:31)
[2017-03-12] MEDS: METOPROLOL TARTRATE 25 MG TABLET PO SCH ×2 (09:15→20:14)
[2017-03-12] MEDS: NICOTINE PATCH (21MG) 21 MG PATCH.TD24 TD SCH (09:16)
[2017-03-12] MEDS: PANTOPRAZOLE 40 MG TABLET.DR PO SCH (09:18)
[2017-03-12] MEDS: FLUTICASONE 110MCG 1 EA INHALER IH SCH ×2 (09:18→18:30)
--- NOTE | 2017-03-12 11:00 | NUR ---
MS RN WAS SEEN BY DR. VIVEK Cook/ ORDERS MADE AND CARRIED OUT.
[2017-03-12] MEDS: GUAIFENESIN/D-METHORPHAN HB 5 ML UDC PO PRN (13:21)
[2017-03-12 16:20] VITALS: BP 157/83
--- NOTE | 2017-03-12 18:00 | NUR ---
MS RN NO CHANGE OF CONDITION,ALL NEEDS ATTENDED.
[2017-03-12] MEDS: LORAZEPAM 1 MG TABLET PO PRN (18:33)
[2017-03-12 20:00] VITALS: BP 186/91
[2017-03-12] MEDS: ATORVASTATIN 10 MG TABLET PO SCH (21:14)
[2017-03-12] MEDS: TEMAZEPAM 7.5 MG CAPSULE PO PRN (21:14)
[2017-03-13] MEDS: IPRATROPIUM NEB FS 0.5 MG/2.5 ML AMPUL.NEB NEB SCH ×3 (01:54→14:15)
[2017-03-13] MEDS: ALBUTEROL FS 2.5 MG/0.5 ML VIAL.NEB NEB SCH ×3 (01:54→14:15)
[2017-03-13] MEDS: AZTREONAM 1 G in IV NS 0.9% 100 ML IV SCH ×2 (05:20→12:01)
--- NOTE | 2017-03-13 06:28 | NUR ---
MS RN NOTES AWAKE & RESPONSIVE. NOT IN ANY DISTRESS. NO SOB NOTED. DENIES ANY PAIN OR DISCOMFORT AT THIS TIME. MONITORED ACCORDINGLY. CALL LIGHT WITHIN REACH. BED IN LOWEST POSITION. SR UP X 2 FOR SAFETY. WILL ENDORSE TO NEXT SHIFT.
[2017-03-13 08:00] VITALS: BP 207/121
[2017-03-13 08:03] LABS: BASOPHILS % (AUTO) 0.3 % (0.0-2.0); EOSINOPHILS # (AUTO) 0.1 /CMM (0.0-0.7); EOSINOPHILS % (AUTO) 0.6 % (0.0-6.0); HEMATOCRIT 41 % (33-45); HEMOGLOBIN 13.9 g/dL (11.5-14.8); LYMPHOCYTES % (AUTO) 25.8 % (20.0-44.0); MEAN CORPUSCULAR HEMOGLOBIN 29 PG (26.0-33.0); MEAN CORPUSCULAR HGB CONC 34 g/dl (31.0-36.0); MEAN CORPUSCULAR VOLUME 86 fL (82-100); MONOCYTES # (AUTO) 1.1 /CMM (0.1-1.30); MONOCYTES % (AUTO) 7.2 % (2.0-12.0); NEUTROPHILS # (AUTO) 10.2 /CMM (1.8-8.9); NEUTROPHILS % (AUTO) 66.1 % (43.0-81.0); PLATELET COUNT (AUTO) 486 /CMM (150-450); RDW COEFFICIENT OF VARIATION 13.9 (11.5-15.0); WHITE BLOOD COUNT (AUTO) 15.4 K/uL (4.3-11.0)
[2017-03-13 08:20] LABS: CALCIUM, SERUM 9.4 mg/dL (8.5-10.1); CREATININE 0.7 mg/dL (0.6-1.3); POTASSIUM 3.4 mmol/L (3.5-5.1)
[2017-03-13] MEDS: FLUTICASONE 110MCG 1 EA INHALER IH SCH ×2 (08:29→17:19)
[2017-03-13] MEDS: PANTOPRAZOLE 40 MG TABLET.DR PO SCH (08:29)
[2017-03-13] MEDS: LISINOPRIL (20MG) 20 MG TABLET PO SCH (08:29)
[2017-03-13] MEDS: DOCUSATE SODIUM 100 MG CAPSULE PO SCH ×2 (08:29→17:20)
[2017-03-13] MEDS: SERTRALINE HCL 50 MG TABLET PO SCH (08:29)
[2017-03-13] MEDS: NICOTINE PATCH (21MG) 21 MG PATCH.TD24 TD SCH (08:30)
[2017-03-13] MEDS: predniSONE 20 MG TABLET PO SCH (08:30)
[2017-03-13] MEDS: NIFEdipine XL (30MG) 30 MG TAB PO SCH (08:30)
[2017-03-13] MEDS: LORAZEPAM 1 MG TABLET PO PRN ×2 (08:30→15:13)
[2017-03-13] MEDS: METOPROLOL TARTRATE 25 MG TABLET PO SCH (08:30)
[2017-03-13] MEDS ORDERED: ALBU2.5V13 NEB (08:55)
[2017-03-13] MEDS ORDERED: PRED20TA PO (08:55)
[2017-03-13] MEDS: CLONIDINE HCL 0.1 MG TABLET PO PRN (12:39)
[2017-03-13] MEDS: POTASSIUM CHLORIDE 20 MEQ TAB.PRT.SR PO SCH ×2 (12:39→12:40)
[2017-03-13] MEDS ORDERED: CLONIDINE HCL 0.1 MG TABLET PO ONE (15:00)
[2017-03-13 15:59] VITALS: BP 159/82
--- NOTE | 2017-03-13 17:40 | NUR ---
MS AUTO CLEANER NOTES PATIENT SITTING ON BED, AWAKE,ALERT,ORIENTED X3,NOT IN ANY FORM OF DISTRESS,RESPIRATIONS EVEN AND UNLABORED,NO SOB NOTED, DENIES PAIN AT THIS TIME, PATIENT WITH DISCHARGE ORDERS, PATIENTS BLOOD PRESSURE NOW SBP 150. REPORT GIVEN TO SNF RN AND EMT TRANSPORT FOR CONTINUITY OF CARE. IV ACCESS AND ID BAND REMOVED WITH NO ASE NOTED. PATIENT DISCHARGED IN STABLE CONDITION.
== END 2017-03-13 17:33 | DRG 190 ==
LOC: ER 14:26 → TELE 20:15 → MED 03-11 08:59
PROVIDERS: ADMIT Family Medicine; ATTEND Family Medicine
DX: J44.1 Chronic obstructive pulmonary disease with (acute) exacerbation (principal); N17.0 Acute kidney failure with tubular necrosis; E44.1 Mild protein-calorie malnutrition; F32.9 Major depressive disorder, single episode, unspecified; I10 Essential (primary) hypertension; E03.9 Hypothyroidism, unspecified; E78.5 Hyperlipidemia, unspecified; F41.9 Anxiety disorder, unspecified; Z87.891 Personal history of nicotine dependence; G47.419 Narcolepsy without cataplexy; Z79.51 Long term (current) use of inhaled steroids; E88.09 Other disorders of plasma-protein metabolism, not elsewhere classified; Z68.26 Body mass index [BMI] 26.0-26.9, adult; J44.0 Chronic obstructive pulmonary disease with (acute) lower respiratory infection; J20.9 Acute bronchitis, unspecified; G47.33 Obstructive sleep apnea (adult) (pediatric); D72.828 Other elevated white blood cell count
CPT/HCPCS: 36415; 70220-TC; 71045-TC; 80048-TC; 80061-TC; 80076-TC; 83605-TC; 83735-TC; 83880; 84100-TC; 85025-TC; 87040-TC; 87081-TC; 87400; 94799-TC; A4606; J3490; J7030; J7050; Z7610

== ENCOUNTER 2019-07-09 10:52 | Emergency (ER) | payer MEDICARE, OTHER ==
[~2019-07-09] VITALS: Ht 160 cm; Wt 74.4 kg
[~2019-07-09 10:52] MED LIST changes: +ALBU2.5V13 NEB; +METO25TA6 PO; +NIFE-35 PO; -NIFE30TA89 PO
--- NOTE | 2019-07-09 10:55 | NUR ---
BIB SELF C/O BILATERAL LEG SWELLING AND HEADACHE STARTED LAST NIGHT. TO ER BED 12, HOOKED TO MONITOR, CHANGED TO HOSP GOWN, WARM BLANKET PROVIDED, PATIENT AAO X 4, BREATHING EVEN AND UNLABORED. AWAITING MD CODY.
--- NOTE | 2019-07-09 11:20 | NUR ---
DR GARCIA AT BEDSIDE
--- NOTE | 2019-07-09 11:37 | NUR ---
IT OPERATIONS ANALYST IS AT THE BEDSIDE FOR BLOOD DRAW.
[2019-07-09 11:41] LABS: BASOPHILS # (AUTO) 0.1 /CMM (0.0-0.2); BASOPHILS % (AUTO) 1.3 % (0.0-2.0); EOSINOPHILS % (AUTO) 3.4 % (0.0-6.0); HEMATOCRIT 39 % (33-45); LYMPHOCYTES # (AUTO) 2.4 /CMM (0.8-4.8); LYMPHOCYTES % (AUTO) 24.2 % (20.0-44.0); MEAN CORPUSCULAR HGB CONC 33 g/dl (31.0-36.0); MEAN CORPUSCULAR VOLUME 82 fL (82-100); MONOCYTES # (AUTO) 0.6 /CMM (0.1-1.30); MONOCYTES % (AUTO) 5.9 % (2.0-12.0); NEUTROPHILS # (AUTO) 6.5 /CMM (1.8-8.9); NEUTROPHILS % (AUTO) 65.2 % (43.0-81.0); PLATELET COUNT (AUTO) 378 /CMM (150-450); RED BLOOD CELL COUNT(AUTO) 4.79 MIL/uL (4.0-5.2); WHITE BLOOD COUNT (AUTO) 9.9 K/uL (4.3-11.0)
--- NOTE | 2019-07-09 11:45 | NUR ---
US TECH IS AT THE BEDSIDE.
[2019-07-09 12:05] LABS: ALANINE AMINOTRANSFERASE 24 U/L (12-78); ALBUMIN 3.6 g/dL (3.4-5.0); ALKALINE PHOSPHATASE 139 U/L (46-116); ASPARTATE AMINOTRANSFERASE 15 U/L (15-37); B-TYPE NATRIURETIC PEPTIDE 175 PG/ML (0-125); BILIRUBIN,DIRECT 0.1 mg/dL (0.0-0.2); BILIRUBIN,TOTAL 0.5 mg/dL (0.2-1.0); CALCIUM, SERUM 8.8 mg/dL (8.5-10.1); CARBON DIOXIDE 29 mmol/L (21-32); CHLORIDE 105 mmol/L (98-107); CREATININE 0.8 mg/dL (0.6-1.3); GLUCOSE 96 mg/dL (74-106); POTASSIUM 3.3 mmol/L (3.5-5.1); SODIUM SERUM 142 mmol/L (136-145); TOTAL PROTEIN, SERUM 7.1 g/dL (6.4-8.2); UREA NITROGEN, BLOOD 14 mg/dL (7-18)
[2019-07-09] MEDS ORDERED: IBUPROFEN 600 MG TABLET PO ONE ×2 (16:07→16:30)
--- NOTE | 2019-07-09 16:09 | NUR ---
Patient discharged to home in stable condition. Written and verbal after care instructions given. Patient verbalizes understanding of instruction.
[2019-07-09 16:10] VITALS: BP 127/82
== END 2019-07-09 16:10 | disposition home or self-care (01) ==
LOC: ER 11:04
DX: R60.0 Localized edema (principal); I44.0 Atrioventricular block, first degree; R51 Headache; F17.210 Nicotine dependence, cigarettes, uncomplicated; I10 Essential (primary) hypertension; J44.9 Chronic obstructive pulmonary disease, unspecified; E03.9 Hypothyroidism, unspecified; E78.5 Hyperlipidemia, unspecified; E87.6 Hypokalemia; Z59.0 Homelessness; Z88.0 Allergy status to penicillin; Z88.5 Allergy status to narcotic agent; Z88.1 Allergy status to other antibiotic agents; Z79.899 Other long term (current) drug therapy
CPT/HCPCS: 36415; 70450-TC; 71045-TC; 80048-TC; 80076-TC; 83880; 84484-TC; 85025-TC; 85730-TC; 93970-TC

== ENCOUNTER 2020-05-18 16:02 | Emergency (ER) | payer MEDICARE, OTHER ==
[~2020-05-18] VITALS: Ht 162.6 cm; Wt 77.6 kg
[~2020-05-18 16:02] MED LIST changes: -LISI-603 PO; +LISI20TA30 PO
--- NOTE | 2020-05-18 16:05 | NUR ---
THE PATIENT IS [id number] C/O SOB X TODAY. ALBUTEROL GIVEN SENIOR SUPPORT ANALYST. THE PATIENT HAS C/O SOB. RESPIRATION REGULAR WITH EPSIDOES OF BEING LABORED MILDLY. THE PATIENT DENIES ANY PAIN/DISCOMFORT. PATIENT IS ATTACHED ON A MONITOR. WILL CONTINUE TO MONITOR.
[2020-05-18] MEDS ORDERED: IPRATROPIUM NEB FS 0.5 MG/2.5 ML AMPUL.NEB ONE (16:23)
[2020-05-18] MEDS ORDERED: ALBUTEROL FS 2.5 MG/3 ML VIAL.NEB ONE (16:23)
[2020-05-18 16:30] LABS: BASOPHILS # (AUTO) 0.2 /CMM (0.0-0.2); BASOPHILS % (AUTO) 1.3 % (0.0-2.0); EOSINOPHILS % (AUTO) 5.3 % (0.0-6.0); HEMATOCRIT 42 % (33-45); HEMOGLOBIN 13.6 g/dL (11.5-14.8); LYMPHOCYTES % (AUTO) 26.2 % (20.0-44.0); MEAN CORPUSCULAR HGB CONC 33 g/dl (31.0-36.0); MEAN CORPUSCULAR VOLUME 84 fL (82-100); MONOCYTES # (AUTO) 0.8 /CMM (0.1-1.30); MONOCYTES % (AUTO) 6.8 % (2.0-12.0); NEUTROPHILS % (AUTO) 60.4 % (43.0-81.0); PLATELET COUNT (AUTO) 391 /CMM (150-450); RED BLOOD CELL COUNT(AUTO) 4.98 MIL/uL (4.0-5.2); WHITE BLOOD COUNT (AUTO) 11.5 K/uL (4.3-11.0)
[2020-05-18] MEDS ORDERED: IPRATROPIUM NEB FS 0.5 MG/2.5 ML AMPUL.NEB NEB ONE (16:30)
[2020-05-18] MEDS ORDERED: ALBUTEROL FS 2.5 MG/3 ML VIAL.NEB CONTNEB ONE (16:30)
[2020-05-18 16:47] LABS: CALCIUM, SERUM 9.5 mg/dL (8.5-10.1); CARBON DIOXIDE 32 mmol/L (21-32); CHLORIDE 104 mmol/L (98-107); GLUCOSE 125 mg/dL (74-106); POTASSIUM 3.5 mmol/L (3.5-5.1); SODIUM SERUM 144 mmol/L (136-145); UREA NITROGEN, BLOOD 20 mg/dL (7-18)
[2020-05-18 16:56] LABS: ALANINE AMINOTRANSFERASE 15 U/L (12-78); ALBUMIN 3.6 g/dL (3.4-5.0); ALKALINE PHOSPHATASE 92 U/L (46-116); ASPARTATE AMINOTRANSFERASE 13 U/L (15-37); BILIRUBIN,DIRECT 0.1 mg/dL (0.0-0.2); BILIRUBIN,TOTAL 0.1 mg/dL (0.2-1.0); TOTAL PROTEIN, SERUM 7.2 g/dL (6.4-8.2)
[2020-05-18] MEDS ORDERED: methylPREDNISolone SOD SUCC 125 MG/2ML VIAL ONE (16:58)
[2020-05-18] MEDS ORDERED: methylPREDNISolone SOD SUCC 125 MG/2ML VIAL IV ONE (17:00)
[2020-05-18] MEDS ORDERED: PRED20TA PO (17:04)
[2020-05-18] MEDS ORDERED: ALBU8.5H8 INH (17:04)
--- NOTE | 2020-05-18 17:20 | NUR ---
The patient in ER bed #8. Denies any distress at this time.
--- NOTE | 2020-05-18 17:35 | NUR ---
CALLED [facility] FOR TRANSPORT TO [facility]. ETA 30-45 MINUTES.
[2020-05-18 18:28] VITALS: BP 152/86
--- NOTE | 2020-05-18 18:28 | NUR ---
Patient discharged to home in stable condition. Written and verbal after care instructions given. Patient verbalizes understanding of instruction. The patient left ER in stable condition via arranged ambulance.
== END 2020-05-18 18:28 | disposition home or self-care (01) ==
LOC: ER 16:03
DX: J44.1 Chronic obstructive pulmonary disease with (acute) exacerbation (principal); I10 Essential (primary) hypertension; E03.9 Hypothyroidism, unspecified; E78.5 Hyperlipidemia, unspecified; E87.6 Hypokalemia; F17.200 Nicotine dependence, unspecified, uncomplicated; Z88.0 Allergy status to penicillin; Z88.5 Allergy status to narcotic agent; Z88.1 Allergy status to other antibiotic agents; Z79.899 Other long term (current) drug therapy
CPT/HCPCS: 36415; 71045; 80048; 80076; 84484; 85025; 93005; 94644; 96374; 99285; J2930

== ENCOUNTER 2020-05-22 08:39 | Emergency (ER) | payer MEDICARE, OTHER ==
[~2020-05-22] VITALS: Ht 162.6 cm; Wt 79.8 kg
[~2020-05-22 08:39] MED LIST changes: -ACET-868 PO; -ALBU2.5V13 NEB; +ALBU8.5H8 INH; -ATOR10TA PO; -BISA10SU8 RC; -DOCU-141 PO; -LISI20TA30 PO; -LORA-259 PO; -MAGN400O6 PO; -MULT-213 PO; -NICO1PAT28 TD; -NIFE-35 PO; -OMEG1CAP55 PO; -SERT50TA PO; -TEMA7.5C PO
[2020-05-22] MEDS ORDERED: ALBUTEROL FS 2.5 MG/3 ML VIAL.NEB NEB ONE (09:00)
[2020-05-22] MEDS ORDERED: IPRATROPIUM NEB FS 0.5 MG/2.5 ML AMPUL.NEB NEB ONE (09:00)
[2020-05-22] MEDS ORDERED: predniSONE 20 MG TABLET PO ONE (09:00)
[2020-05-22] MEDS ORDERED: predniSONE 20 MG TABLET ONE (09:01)
--- NOTE | 2020-05-22 09:06 | NUR ---
patient [id number], from half-way c/o sob x today. Was given nitro and albuterol INSULATION EXTRUDER OPERATOR, patient is feeling much better. On room air, breathing evenly. Connected to the monitor and pulse ox. kept comfortable, will continue to monitor accordingly.
[2020-05-22] MEDS ORDERED: IPRATROPIUM NEB FS 0.5 MG/2.5 ML AMPUL.NEB ONE (09:12)
[2020-05-22] MEDS ORDERED: ALBUTEROL FS 2.5 MG/3 ML VIAL.NEB ONE (09:12)
--- NOTE | 2020-05-22 09:16 | NUR ---
RT at bedside for breathing treatment.
--- NOTE | 2020-05-22 10:15 | NUR ---
health social work professor at bedside talking to patient.
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
[2020-05-22] MEDS ORDERED: PRED20TA PO (10:51)
[2020-05-22] MEDS ORDERED: ALBU8.5H8 INH (10:51)
[2020-05-22 10:56] VITALS: BP 138/71
--- NOTE | 2020-05-22 10:56 | NUR ---
Patient discharged to home in stable condition. Written and verbal after care instructions given. Patient verbalizes understanding of instruction.IV removed. Catheter intact and site benign. Pressure and 4x4 applied to site. No bleeding noted.
--- NOTE | 2020-05-22 12:47 | NUR ---
DME follow up: SW called [facility] [[address] [place], [place] [id number] ] regarding Nebulizer for pt. Per [facility] they do not take insurance and Nebulizer is $85 out of pocket plus Albuterol Medication. SW called [facility] [[address] [address] ] and regarding Nebulizer for pt. Per [facility] they do not take insurance and Nebulizer is $100 out of pocket plus Albuterol Medication. SW called [facility] [[address] [place] [address] ] and left voicemail regarding Nebulizer costs and if they take insurance. SW will be available as needed. Plan: SW called and notified the patient regarding above stated information and patient stated she can pay out of pocket for the Nebulizer at [facility] [[address] [facility] [place] [address] ] since it is closer to her. Per pt. she will call and order it and take taxi with to pick it up. Patient states she will call her Snap Attacher, Dr. Palmer to prescribe Albuterol for her breathing Tx. Noted. SW will be available as needed.
== END 2020-05-22 10:56 | disposition home or self-care (01) ==
LOC: ER 08:43
DX: J44.9 Chronic obstructive pulmonary disease, unspecified (principal); Z91.14 Patient's other noncompliance with medication regimen; Z59.0 Homelessness; I10 Essential (primary) hypertension; E78.5 Hyperlipidemia, unspecified; E03.9 Hypothyroidism, unspecified; F32.9 Major depressive disorder, single episode, unspecified; Z88.0 Allergy status to penicillin; Z88.5 Allergy status to narcotic agent; Z88.1 Allergy status to other antibiotic agents; Z79.899 Other long term (current) drug therapy
CPT/HCPCS: 94644; 99285; J7512